=== PATIENT | female | born 1975 | race Caucasian/White ===

== ENCOUNTER 2019-11-10 18:40 | Emergency (ER) | payer OTHER ==
[~2019-11-10] VITALS: Ht 165.1 cm; Wt 59.4 kg
--- NOTE | 2019-11-10 18:55 | PHYS DOC ---
Past History Past Medical History: Anxiety, Asthma Past Medical History ADHD Past Surgical History: Other Smoking: Non-smoker Alcohol Use: Occasionally Drug Use: None Adult General Chief Complaint Chief Complaint: CHEST PAIN..." I ve been having this dull chest pain all day.. in is center of my chest .. goes up into Lt side of my neck.. .and into Lt. shoulder and arm.. .. "I did recently start Adderall .. maybe it is related to that..." HPI HPI Patient is a 44 year old female dependent who presents with above hx and complaints of chest pain. 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 Patient denies previous cardiac problems. Patient denies any activity that exacerbates the pain or makes it better. There is family history of hypertension both in her brother and her father. Grandmother's in both sides had cardiovascular problems with one of ND age 70 and another one CVA 3 age 76 . Pt. follows with [facility] for care at [facility]. Review of Systems Review of Systems Constitutional: Denies fever or chills [] Eyes: Denies change in visual acuity, redness, or eye pain [] HENT: Denies nasal congestion or sore throat [] Respiratory: Denies cough or shortness of breath [] Cardiovascular: No additional information not addressed in HPI [] GI: Denies abdominal pain, nausea, vomiting, bloody stools or diarrhea [] : Denies dysuria or hematuria [] Musculoskeletal: Denies back pain or joint pain [] Integument: Denies rash or skin lesions [] Neurologic: Denies headache, focal weakness or sensory changes [] Endocrine: Denies polyuria or polydipsia [] All other systems were reviewed and found to be within normal limits, except as documented in this note. Family History Family History Hypertension and coronary artery disease Current Medications Current Medications See nursing for home meds Allergies Allergies Allergies Coded Allergies Type Severity Reaction Last Updated Verified Penicillins Allergy Unknown Hives 12/19/15 Yes Physical Exam Physical Exam Constitutional: Well developed, well nourished, no acute distress, non-toxic appearance. [] HENT: Normocephalic, atraumatic, bilateral external ears normal, oropharynx moist, no oral exudates, nose normal. [] Eyes: PERRLA, EOMI, conjunctiva normal, no discharge. [] Neck: Normal range of motion, no tenderness, supple, no stridor. [] Cardiovascular:Heart rate regular rhythm, no murmur [] Lungs & Thorax: Bilateral breath sounds clear to auscultation [] Abdomen: Bowel sounds normal, soft, no tenderness, no masses, no pulsatile masses. [] Skin: Warm, dry, no erythema, no rash. [] Back: No tenderness, no CVA tenderness. [] Extremities: No tenderness, no cyanosis, no clubbing, ROM intact, no edema. [] No cording noted. Neurologic: Alert and oriented X 3, normal motor function, normal sensory function, no focal deficits noted. [] Psychologic: Affect anxious, judgement normal, mood normal. [] EKG EKG My interpretation EKG shows a sinus rhythm at 74 bpm. No acute morphology.[] Radiology/Procedures Radiology/Procedures [][place] [address] IMAGING REPORT Signed PATIENT: LAITH ESPINO RACCOUNT: [id number] : 1975 LOCATION: ER AGE: 44 SEX: F EXAM STATUS: PRE ER ORD. PHYSICIAN: TATIANA NEGRON MD REASON: CHEST PAIN PROCEDURE: CHEST PA & LATERAL Chest, PA and Lateral: Technique: PA and lateral views of the chest were obtained. History: Chest pain. Comparison: None. Findings: The heart and pulmonary vasculature appear within normal limits. The lungs are clear. The pleural margins are clear. Impression: No acute chest process is seen. Electronically signed by: Danyel Zacarias MD (11/10/2019 7:22 PM) [facility] DICTATED AND SIGNED BY: DANYEL ZACARIAS MD DATE: 11/10/191921 CC: TATIANA NEGRON MD; LORI BEATTY DO, MPH ~ Course & Med Decision Making Course & Med Decision Making Pertinent Labs and Imaging studies reviewed. (See chart for details) Pt. to take daily ASA. Tylenol and Ibuprofen for pain. Follow up with primary. Return if any concerns. Hearth score 1 Pt declined repeat EKG and Trop. testing. Impression- 1. Atypical CP or discomfort. 2. Viral Syndrome 3. Elevated [place] and Alk Phos [] Dragon Disclaimer Dragon Disclaimer This electronic medical record was generated, in whole or in part, using a voice recognition dictation system. Departure Departure: Disposition: 01 HOME/RESIDENCE PRIOR TO ADM Condition: STABLE Referrals: LORI BEATTY DO, MPH (PCP) Dragon Disclaimer This chart was dictated in whole or in part using Voice Recognition software in a busy, high-work load, and often noisy Emergency Department environment. It may contain unintended and wholly unrecognized errors or omissions. Dragon Disclaimer This chart was dictated in whole or in part using Voice Recognition software in a busy, high-work load, and often noisy Emergency Department environment. It m ay contain unintended and wholly unrecognized errors or omissions. TATIANA NEGRON MD Nov 10, 2019 18:55
[2019-11-10] MEDS ORDERED: IV RINGERS SOLUTION,LACTATED 1,000 ML IV SCH (18:56)
[2019-11-10] MEDS ORDERED: [UNRECOGNIZED DRUG - OTHER] (19:04)
[2019-11-10] MEDS ORDERED: DEXT5TAB27 PO (19:04)
[2019-11-10] MEDS ORDERED: IBUP800T19 PO (19:04)
[2019-11-10] MEDS ORDERED: ASPIRIN 81 MG TAB.CHEW PO ONE (19:15)
--- NOTE | 2019-11-10 19:25 | RAD ---
Chest, PA and Lateral: Technique: PA and lateral views of the chest were obtained. History: Chest pain. Comparison: None. Findings: The heart and pulmonary vasculature appear within normal limits. The lungs are clear. The pleural margins are clear. Impression: No acute chest process is seen. Electronically signed by: Danyel Zacarias MD (11/10/2019 7:22 PM) [facility]
[2019-11-10 19:55] LABS: BASO % 1 % (0-3); EOS # 0.2 x10^3/uL (0.0-0.7); EOS % 3 % (0-3); HEMATOCRIT 38.5 % (36.0-47.0); HEMOGLOBIN 13.2 g/dL (12.0-15.5); LYMPH # 2.7 x10^3/uL (1.0-4.8); LYMPH % 46 % (24-48); MEAN CORPUSCULAR HEMOGLOBIN 31 pg (25-35); MEAN CORPUSCULAR HGB CONC 34 g/dL (31-37); MEAN CORPUSCULAR VOLUME 91 fL (79-100); MONO # 0.7 x10^3/uL (0.0-1.1); MONO % 11 % (0-9); NEUT # 2.3 x10^3uL (1.8-7.7); NEUT % 39 % (31-73); PLATELET COUNT 239 x10^3/uL (140-400); RED BLOOD COUNT 4.23 x10^6/uL (3.50-5.40); RED CELL DISTRIBUTION WIDTH 12.4 % (11.5-14.5); WHITE BLOOD COUNT 5.9 x10^3/uL (4.0-11.0)
[2019-11-10 20:00] LABS: CALCIUM 8.6 mg/dL (8.5-10.1); CREATININE 0.7 mg/dL (0.6-1.0); GFR 90.1; POTASSIUM 3.3 mmol/L (3.5-5.1)
[2019-11-10 20:12] LABS: ALBUMIN 3.9 g/dL (3.4-5.0); DIRECT BILIRUBIN 0.1 mg/dL (0.0-0.2); MAGNESIUM 2.2 mg/dL (1.8-2.4); TOTAL BILIRUBIN 0.2 mg/dL (0.2-1.0); TOTAL PROTEIN 7.3 g/dL (6.4-8.2)
[2019-11-10 20:20] VITALS: BP 125/72
--- NOTE | 2019-11-11 04:40 | EKG ---
[address] [address] Test Date: 2019-11-10 Test Time: 18:48:30 Pat Name: LAITH ESPINO Department: Room: Gender: F Agriculture Consultant: : 1975 Requested By: TATIANA NEGRON Order Number: [id number] Reading MD: Measurements Intervals [place] Rate: 74 P: 49 AR: 150 QRS: 26 QRSD: 88 T: 26 QT: 362 QTc: 402 Interpretive Statements SINUS RHYTHM NO SPECIFIC ECG ABNORMALITIES RI6.01 No previous ECG available for comparison
[2019-11-11 11:30] LABS: THYROID STIM HORMONE (TSH) 2.207 uIU/mL (0.358-3.740)
== END 2019-11-10 20:40 | disposition home or self-care (01) ==
LOC: ER 18:40
DX: R07.89 Other chest pain (principal); B34.9 Viral infection, unspecified; R79.89 Other specified abnormal findings of blood chemistry; D72.821 Monocytosis (symptomatic); F41.9 Anxiety disorder, unspecified; J45.909 Unspecified asthma, uncomplicated; Z88.0 Allergy status to penicillin
CPT/HCPCS: 36415; 71046; 80048; 80061; 80076; 82550; 83690; 83735; 83880; 84443; 84484; 85025; 85379; 85610; 85730; 93005; 99285; J7120

== ENCOUNTER 2020-04-07 21:38 | Emergency (ER) | payer OTHER ==
[~2020-04-07] VITALS: Ht 165.1 cm; Wt 52.0 kg
[~2020-04-07 21:38] MED LIST: DEXT5TAB27 PO; IBUP800T19 PO; [UNRECOGNIZED DRUG - OTHER]
--- NOTE | 2020-04-07 21:41 | PHYS DOC ---
Past History Past Medical History: Anxiety, Asthma Additional Past Medical Histor: ADHD Past Surgical History: Other Additional Past Surgical Histo: wisdom teeth, breast biopsy, uterine ablation, septoplasty Smoking: Non-smoker Alcohol Use: Occasionally Drug Use: None General Adult HPI: HPI: "...My big boy ' Emory.. he is an inside cat... but he got his collar caught.. and was struggling to get loose.. and I went to help him and he bit my right hand..and scratch me..he was just a panic.." " I think you took care of my last cat bite..." Patient is a 44 year old female who presents with above hx and complaints of cat bite on Rt. hand at dorsal base of thumb, back of hand and scratch to Lt. forearm. Cat is normally very calm but was stressed over his collar that was choking him. Bite was at approximate 2130 hrs. The cat is up-to-date with vaccinations. Patient last had tetanus update approximately 5 years ago. 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 Patient's cat 'Emory is only an inside cat. Patient has not had any travel outside [facility]. No specific ill contacts. Patient normally follows at [facility]. Patient denies any history immunosuppression. Review of Systems: Review of Systems: Constitutional: Denies fever or chills Eyes: Denies change in visual acuity HENT: Denies nasal congestion or sore throat Respiratory: Denies cough or shortness of breath Cardiovascular: Denies chest pain or edema GI: Denies abdominal pain, nausea, vomiting, bloody stools or diarrhea : Denies dysuria Musculoskeletal: Denies back pain or joint pain Integument: Complaints of cat bite and scratch. Neurologic: Denies headache, focal weakness or sensory changes Endocrine: Denies polyuria or polydipsia Lymphatic: Denies swollen glands Psychiatric: Denies depression or anxiety Heart Score: Risk Factors: Risk Factors: DM, Current or recent (<one month) smoker, HTN, HLP, family history of CAD, obesity. Risk Scores: Score 0 - 3: 2.5% MACE over next 6 weeks - Discharge Home Score 4 - 6: 20.3% MACE over next 6 weeks - Admit for Clinical Observation Score 7 - 10: 72.7% MACE over next 6 weeks - Early Invasive Strategies Family History: Family History: Noncontributory to presentation Current Medications: Current Meds: See nursing for home meds Allergies: Allergies: Allergies Coded Allergies Type Severity Reaction Last Updated Verified Penicillins Allergy Unknown Hives 11/10/19 Yes Physical Exam: PE: Constitutional: Well developed, well nourished, no acute distress, non-toxic appearance. [] HENT: Normocephalic, atraumatic, bilateral external ears normal, oropharynx moist, no oral exudates, nose normal. [] Eyes: PERRLA, EOMI, conjunctiva normal, no discharge. [] Neck: Normal range of motion, no tenderness, supple, no stridor. [] Cardiovascular:Heart rate regular rhythm, no murmur [] Lungs & Thorax: Bilateral breath sounds equal at apexes on auscultation [] Abdomen: Bowel sounds normal, soft, no tenderness, no masses, no pulsatile masses. [] Skin: Warm, dry, no erythema, no rash. Bite roger or puncture Rt. hand and scratch roger Lt. forearm as per HPI. Back: No tenderness, no CVA tenderness. [] Extremities: No tenderness, no cyanosis, no clubbing, ROM intact, no edema. Except puncture wounds to Rt hand and scratch Lt forearm. Neurologic: Alert and oriented X 3, normal motor function, normal sensory function, no focal deficits noted. [] Psychologic: Affect normal, judgement normal, mood normal. [] EKG: EKG: [] Radiology/Procedures: Radiology/Procedures: [] Course & Med Decision Making: Course & Med Decision Making Pertinent Labs and Imaging studies reviewed. (See chart for details) Wound washed with soap and water. Pt. to use Moist warm compression or soaks 4 x day, the massage bite with polysporin. Pt. to take Bactrim twice a day. Followup with primary. Cat not to be killed but confined for infection observation x 10 days. Concern for Pasteurella multocida and Staph. Impression: 1.Cat Bite 2.Cat Scratch [] Dragon Disclaimer: Amber Disclaimer: This electronic medical record was generated, in whole or in part, using a voice recognition dictation system. Departure Departure: Disposition: 01 HOME/RESIDENCE PRIOR TO ADM Condition: STABLE Referrals: PCP,NO (PCP) Scripts Bacitracin/Polymyxin B Sulfate (POLYSPORIN OINTMENT) 28.3 Gm Oint...g. 28.3 GM TP QID for bite, scratch, #120 MISC Prov: TATIANA NEGRON MD 04/07/20 Sulfamethoxazole/Trimethoprim (BACTRIM DS TABLET) 1 Each Tablet 1 TAB PO BID for cat bite for 10 Days, #20 TAB 0 Refills Prov: TATIANA NEGRON MD 04/07/20 Hydrocodone/Ibuprofen (HYDROCODONE-IBUPROFEN 7.5-200 ) 1 Each Tablet 1 TAB PO PRN Q6HRS PRN for PAIN, #30 TAB 0 Refills Prov: TATIANA NEGRON MD 04/07/20 Justification of Admission: Justification of Admission: Justification of Admission Dx: N/A Dragon Disclaimer This chart was dictated in whole or in part using Voice Recognition software in a busy, high-work load, and often noisy Emergency Department environment. It may contain unintended and wholly unrecognized errors or omissions. TATIANA NEGRON MD Apr 07, 2020 21:41
[2020-04-07] MEDS ORDERED: SULF1TAB24 PO (22:03)
[2020-04-07] MEDS ORDERED: HYDR-1179 PO (22:03)
[2020-04-07] MEDS ORDERED: BACI28.34 TP (22:03)
[2020-04-07] MEDS ORDERED: SMZ/TMP 800/160MG TABLET. PO ONE (22:30)
[2020-04-07 22:43] VITALS: BP 125/104
== END 2020-04-07 22:35 | disposition home or self-care (01) ==
LOC: ER 21:38
DX: S61.431A Puncture wound without foreign body of right hand, initial encounter (principal); S50.811A Abrasion of right forearm, initial encounter; J45.909 Unspecified asthma, uncomplicated; Z88.0 Allergy status to penicillin; W55.01XA Bitten by cat, initial encounter; Y93.89 Activity, other specified; Y92.89 Other specified places as the place of occurrence of the external cause; Y99.8 Other external cause status
CPT/HCPCS: 99283

== ENCOUNTER → 2022-01-02 | Outpatient (CLI) | payer OTHER ==
[~2022-01-02] MED LIST changes: +BACI28.34 TP; +HYDR-1179 PO; +SULF1TAB24 PO
--- NOTE | 2022-01-03 16:02 | RAD ---
EXAM: ULTRASOUND PELVIS INDICATION: Pelvic and perineal pain. COMPARISON: None available. TECHNIQUE: Transvaginal sonography was performed. FINDINGS: The uterus measures 9.7 x 5.2 x 4.9 cm. The endometrial echo measures 0.7 cm in thickness. The right ovary measures 2.5 x 1.4 x 1.8 cm and the left ovary 3 x 2.5 x 1.2 cm. Uterine fibroid measuring 1.9 x 1.9 x 1.5 cm. Ectatic veins adjacent to the uterus. Mildly heterogene ous endometrium and mildly heterogeneous myometrium adjacent to the endometrium. Doppler flow is maintained to both ovaries. Simple cyst/dominant follicle on the right measuring up t o 1.3 cm. Simple cyst or dominant follicle on the left measuring up to 1.3 cm. No free pelvic fluid. Nabothian cysts. IMPRESSION: 1. Mildly heterogeneous endometrium and myometrium. A consideration is adenomyosis. Endometrial thick ness measured at 0.7 cm which is within normal limits assuming a premenopausal state. 2. Uterine fibroid measuring up to 1.9 x 1.9 x 1.5 cm. 3. Unremarkable ovaries with small simple cysts or dominant follicles measuring up to 1.3 cm on both the right and left. Electronically signed by: ROLAND BENITEZ MD (01/03/2022 3:59 PM) [id number]
== END ==
LOC: US 15:47
PROVIDERS: ATTEND Family Medicine Sports Medicine
DX: D25.9 Leiomyoma of uterus, unspecified (principal); N80.0 Endometriosis of uterus; N88.8 Other specified noninflammatory disorders of cervix uteri
CPT/HCPCS: 76830